=== PATIENT | female | born 1980 | race Caucasian/White ===

== ENCOUNTER 2017-02-20 17:31 | Emergency (ER) | payer SELFPAY ==
[~2017-02-20] VITALS: Ht 154.9 cm; Wt 59.9 kg
[2017-02-20 17:39] VITALS: BP 124/74
[2017-02-20] MEDS ORDERED: LORazepam 0.5 MG TAB PO ONE (18:00)
[2017-02-20] MEDS ORDERED: LORazepam 0.5 MG TAB ONE (18:02)
== END 2017-02-20 18:12 | disposition home or self-care (01) ==
LOC: ER 17:39
DX: F41.9 Anxiety disorder, unspecified (principal); R42 Dizziness and giddiness

== ENCOUNTER 2017-06-05 12:34 | Emergency (ER) | payer MEDICAID ==
[~2017-06-05] VITALS: Ht 154.9 cm; Wt 61.2 kg
[2017-06-05 12:50] VITALS: BP 110/73
== END 2017-06-05 13:22 | disposition home or self-care (01) ==
LOC: ER 12:34
DX: F41.9 Anxiety disorder, unspecified (principal); Z76.0 Encounter for issue of repeat prescription

== ENCOUNTER 2018-03-27 20:33 | Emergency (ER) | payer MEDICAID ==
[~2018-03-27] VITALS: Ht 154.9 cm; Wt 62.6 kg
[2018-03-27 20:52] VITALS: BP 134/96
== END 2018-03-28 02:38 | disposition left against medical advice (07) ==
LOC: ER 20:33
DX: F41.9 Anxiety disorder, unspecified (principal); Z53.21 Procedure and treatment not carried out due to patient leaving prior to being seen by health care provider